=== PATIENT | male | born 1985 | race Caucasian/White ===

== ENCOUNTER 2019-05-18 09:37 | Outpatient (CLI) | payer BC, SELFPAY ==
--- NOTE | 2019-05-18 10:03 | ECHO_ITS ---
Patient Info Name: Thompson Vidal Age: 33 years : 1985 Gender: Male Ht: 70 in Wt: 155 lbs BSA: 1.86 m2 HR: 53 bpm BP: 122 / 69 mmHg Heart Rhythm: Sinus Rhythm Technical Quality: Good Exam Date: 05/18/2019 10:11 AM Exam Location: [facility] Patient Status: Outpatient Admit Date: 05/18/2019 Staff Ordering Physician: Valentin Hagan MD Financial Reporting Director: Yelena Garcia RDCS Attending Provider: Valentin Hagan MD Referring Physician: Bentley SAINI; Exam Type: CA echo doppler color flow Study Info Indications - MURMUR Complete two-dimensional, color flow and Doppler transthoracic echocardiogram is performed. Summary 1. Trivial amounts of both tricuspid and pulmonic valve insufficiency. 2. Otherwise unremarkable echocardiogram. Left Ventricle Left ventricular chamber dimension is normal. Left ventricular systolic function is normal, estimated at 60-65%. The left ventricular diastolic function is normal. Right Ventricle Right ventricular chamber dimension is normal. Left Atria Left atrial chamber dimension is normal. Right Atria Right atrial chamber dimension is normal. Aortic Valve The aortic valve is normal. Pulmonic Valve The pulmonic valve is normal. There is trace pulmonic regurgitation. Mitral Valve The mitral valve has normal leaflets. Tricuspid Valve The tricuspid valve leaflets are normal. There is trace tricuspid valve regurgitation. Pericardium/Pleural The pericardium appears normal. Aorta The aortic root size at the sinus of Valsalva is normal. Left Ventricular Outflow Tract Name Value Normal LVOT 2D LVOT Diameter 2.0 cm LVOT Doppler LVOT Peak Gradient 6 mmHg LVOT Mean Gradient 4 mmHg LVOT VTI 26 cm LVOT VTI/AV VTI Ratio 0.9 LVOT Stroke Volume 85 ml LVOT CO 17.8 l/min LVOT CI 9.5 l/min/m2 Pulmonic Valve Name Value Normal PV Doppler PV Peak Gradient 5 mmHg PV Regurgitation Doppler WI Peak End Diastolic Velocity 77 cm/s Mitral Valve Name Value Normal MV Doppler MV Decel Coles 437 cm/s2 MV PHT 75 ms MV Area (PHT) 3.0 cm2 4.0-5.0 MV Diastolic Function
== END 2019-05-18 09:38 | disposition home or self-care (01) ==
PROVIDERS: PCP Family Medicine; Visit Provider Surgery
DX: R01.1 Cardiac murmur, unspecified (principal)
CPT/HCPCS: 93306

== ENCOUNTER 2019-07-17 06:02 | Outpatient (CLI) | payer BC, SELFPAY ==
[2019-07-17 17:06] LABS: SARS-CoV-2 RNA PCR Negative
== END 2019-07-17 06:03 | disposition home or self-care (01) ==
LOC: ANHCOVIDDT 06:02
PROVIDERS: PCP Family Medicine; Visit Provider Surgery
DX: Z01.818 Encounter for other preprocedural examination (principal); Z11.59 Encounter for screening for other viral diseases
CPT/HCPCS: 87635; C9803; U0003

== ENCOUNTER 2019-07-17 08:11 | Outpatient (CLI) | payer BC, SELFPAY ==
--- NOTE | 2019-07-17 08:15 | ECG_ITS ---
Measurements Intervals [place] Rate: 45 P: 64 DE: 184 QRS: 38 QRSD: 92 T: 54 QT: 401 QTc: 348 Interpretive Statements SINUS BRADYCARDIA DELAYED PRECORDIAL R/S TRANSITION PEAKED T WAVES- CONSIDER HYPERKALEMIA OR ISCHEMIA BASELINE ARTIFACT- I, II, III, AVR, AVL, AVF ABNORMAL ECG Electronically Signed On 07-17-2019 8:36:03 CDT by Aramis Anguiano D.O.
[2019-07-17 08:46] LABS: Hematocrit 50.6 % (42.0-52.0); Hemoglobin 17.1 g/dL (14.0-18.0)
== END 2019-07-17 08:12 | disposition home or self-care (01) ==
LOC: ANHSURGERY 08:15
PROVIDERS: Anesthesiology; PCP Family Medicine; Visit Provider Surgery
DX: Z01.812 Encounter for preprocedural laboratory examination (principal); K40.20 Bilateral inguinal hernia, without obstruction or gangrene, not specified as recurrent; R94.31 Abnormal electrocardiogram [ECG] [EKG]
CPT/HCPCS: 36415; 85014; 85018; 86850; 86900; 86901; 93005

== ENCOUNTER 2019-07-20 01:48 | Day surgery (SDC) | payer BC, SELFPAY ==
[2019-02-13 14:15] VITALS: BMI 22.1
[2019-05-18 11:50] VITALS: BMI 22.1
[2019-07-15 11:54] VITALS: BMI 22.1
[2019-07-20] VITALS (10 sets, daily range): BP systolic 113–132; BP diastolic 67–85; PULSE 42–68; RESP 10–14; TEMP 36–36.3; O2SAT 99–100; BMI 25.0
--- NOTE | 2019-07-20 09:17 | PM.HPGS ---
History of Present Illness History of Present Illness Consent: Risks, benefits, and alternatives of a bilateral laparoscopic inguinal hernia repair have been discussed and questions answered. Patient agrees to proceed with procedure. Chief complaint: Bilateral Inguinal Hernia Narrative: Thompson Vidal is a 34 year old male that presented to the office at the request of Dr House for an evaluation of an inguinal hernia. Patient reports he first noticed a bulge in his left groin about 7 months ago while he was showering. Patient reports that he notices the bulge more with physical active and the only thing that really helps is when he manually reduces the bulge. Patient reports that he recently has trained for and then climbed [employer] so he was being very active. He has now switched to primarily bicycle exercise due to lifting concerns with the bulge. Patient reports there is mild discomfort especially with exertion. Patient denies any changes to the bulge. Patient denies any bulge on the right side or at his umbilicus. Patient denies any pervious history of any other hernias. Patient denies any family history of hernias. Review of Systems Constitutional: Constitutional: Reports no additional constitutional complaints and Denies frequent falls Eyes: Eyes: Reports as per HPI ENT: Reports Normal hearing present, Denies dizziness and Reports other (Mucous membranes moist.) Cardiovascular: Cardiovascular: Denies chest pain, Denies palpitations, Denies dyspnea and Denies dyspnea on exertion Respiratory: Respiratory: Denies hemoptysis, Denies dyspnea, Denies dyspnea on exertion and Denies wheezing Gastrointestinal: Gastrointestinal: Reports no additional gastrointestinal complaints and Reports other (bulging in the left inguinal area wiht exertion) Genitourinary: Genitourinary: Denies hematuria, Denies nocturia and Denies urinary frequency Musculoskeletal: Musculoskeletal: Denies deformity and Reports other ( no clubbing,cyanosis, or edema) Integumentary/Breasts: Skin/Breast: Denies new lesions, Denies rash and Denies unusual bruising Neurologic: Reports Normal hearing present, Denies dizziness, Denies frequent falls, Denies memory loss and Denies seizure-like activity Psychiatric: Psychiatric: Denies memory loss and Reports other ( normal mood and mental status) Endocrine: Endocrine: Denies cold intolerance and Denies palpitations Hematologic/Lymphatic: Hematologic/Lymphatic: Denies easy bleeding and Denies easy bruising Allergic/Immunologic: Allergic/Immunologic: Denies wheezing and Reports other ( no lymphadenopathy) PMFSH Family History Family History Grandparent Lung cancer Maternal Grandpa Grandparent Melanoma Maternal Grandmother Grandparent Heart attack Paternal Grandfather Social History Social History Smoking status: Never smoker Alcohol intake: current Substance use: never Substance use type: does not use Additional occupation/education comments: [employer] Gender identity (if verbalized by the patient): Male Spiritual care concerns: No Agree to blood products: Yes Meds Home Medications and Allergies Home Medications Medication Instructions Recorded Confirmed Type No Home Medications 01/13/19 07/20/19 History Allergies Allergy/AdvReac Type Severity Reaction Status Date / Time No Known Allergies Allergy Verified 07/20/19 10:36 Exam Const: General: cooperative, no acute distress, well developed, alert and awake Nutritional Appearance: well nourished Orientation/consciousness: oriented to person, oriented to place, oriented to time and patient oriented x3 HENMT: Head: normal to inspection, normocephalic and atraumatic Ears: hearing grossly normal bilaterally and external ears normal General nose exam: Normal external nose present and No
[2019-07-20] MEDS: LACTATED RINGERS 1,000 ML 30 ML IV CONT ×2 (10:45→13:56)
--- NOTE | 2019-07-20 11:03 | WPDANESEPPF ---
Anes - Initial Pre Proc Eval Procedure: Operation Date: 07/20/19 12:00 Proposed Procedures p Laparoscopic Total Extraperitoneal Bilateral Inguinal Hernia Repair With Mesh, Possible Open - Valentin Hagan MD Date/Time: 07/20/19 11:03 Surgeon: Valentin Hagan MD Pre Op Diagnosis: Bilateral Inguinal Hernia Patient Data Age: 34 Gender: M Height: 5 ft 9 in Weight: 77 kg Last Vital Signs Temp 36.0 C L 07/20/19 10:28 Pulse 51 L 07/20/19 10:28 Resp 14 07/20/19 10:28 BP 129/73 07/20/19 10:28 Pulse Ox 100 07/20/19 10:28 Allergies Allergy/AdvReac Type Severity Reaction Status Date / Time No Known Allergies Allergy Verified 07/20/19 10:36 Home Medications Medication Instructions Recorded Confirmed Type No Home Medications 01/13/19 07/20/19 History Patient hx anesthesia problems: none Family hx anesthesia problems: none [facility] Family History Family History Grandparent Lung cancer Maternal Grandpa Grandparent Melanoma Maternal Grandmother Grandparent Heart attack Paternal Grandfather Social History Social History Smoking status: Never smoker Alcohol intake: current Substance use: never Substance use type: does not use Additional occupation/education comments: [employer] Gender identity (if verbalized by the patient): Male Spiritual care concerns: No Agree to blood products: Yes Anes - Eval Final PreProcedure Day of Procedure 07/20/19 11:03 Patient weight: normal Heart: regular rate and rhythm Lungs: clear to auscultation Airway: Mallampati scale class 1 Neurological: alert and oriented Last oral intake: >/= 8 hours ASA classification: I Emergent: no Anesthetic plan: proceed Anesthesia type and monitoring: general ETT and standard monitoring Informed Consent: The patient's anesthetic plan and its attendant risks and benefits were discussed with the patient/family/POA. Questions were solicited and answers provided to the satisfaction of the patient/family/POA.
[2019-07-20] MEDS: ceFAZolin 2 GM/D5W 50 ML 2 GM/50 ML BAG IVPB (11:42)
[2019-07-20] MEDS: BUPIVACAINE/EPINEPHRINE 0.5% 30 ML VIAL INFILTRATE (11:42)
--- NOTE | 2019-07-20 13:42 | SUR.OPER ---
EBL:5cc
--- NOTE | 2019-07-20 13:51 | PM.PROC ---
Procedure Note - Detailed Date of procedure: 07/20/19 Pre-op diagnosis: Bilateral Inguinal Hernia Post-op diagnosis: other (Bilateral direct inguinal hernias left greater than right) Procedure performed: Totally extraperitoneal bilateral inguinal hernia repair with mesh Description of procedure: Patient was seen in the preoperative area and questions answered. History and physical was updated. After appropriate marking of the operative site prior to surgery, the patient was taken to the operating room. After induction of adequate general endotracheal anesthesia by [facility] staff, the patient was carefully prepped and draped in a sterile fashion. A timeout was performed confirming the procedure and site of surgery on the bilateral inguinal hernia repair with mesh. Following this, local anesthetic was infiltrated into the umbilical area and a vertical incision was made just below the umbilicus. I carefully dissected down to the the anterior rectus sheath on the right and then made a 1 cm vertical slit in the fascia just off the midline. The rectus muscle was retracted to right and then just in front of the posterior rectus sheath, a dissecting balloon was passed onto the pubic bone. This was insufflated with 40 pumps, while watching with the 0 degree laparoscope. It appeared that I was in the proper plane. Following this, the dissecting balloon was removed and replaced by an O-frame conforming balloon. Following this, the 0 degree laparoscope was used to carefully place two 5mm Apple trocars in the enfra-umbilical midline. One suprapubic and other one long-term between the umbilicus and the pubic bone. Tedious dissection then occurred in the preperitoneal space exposing the Anatoly's ligament first on the left, the cord structures, the muscular tissue anteriorly, and the retroperitoneum. This was then able to be dissected back and we could visualize the posterior peritoneum. During this dissection we identified a pseudo sac on the left and tissues were dissected out of the direct hernia and it appeared that the pseudo sac would pull in and quit be able to be tacked to the anterior abdominal wall. I then dissected up to the level of the umbilicus and it was ready for mesh placement. At this point I moved to the patient's left side and did the same dissection on the right. The pseudo sac seen upon initial dissection through the balloon was identified and freed away from the surrounding tissues and I identified the inferior epigastric vessels and the anterior abdominal wall laterally. We pulled the superior edge of the peritoneum back toward the umbilicus far enough such that it appeared that the large 3DMax mesh would fit nicely. I then grasped the right-sided pseudo sac in the direct hernia space and pulled it back in and placed 2 tacks through it into the anterior abdominal wall musculature toward the midline. This nicely held the pseudo sac reduced back into the preperitoneal space. I then repeated the same maneuver on the left. After carefully confirming all sites and that the mesh would cover the direct space, I carefully 1st rolled the left large 3DMax mesh and slid this through the 12 mm trocar at the umbilical level down into the preperitoneal space. This unfurled nicely and sat nicely, after a little further dissection against the left groin structures. It nicely covered all spaces and it went back nicely into the preperitoneal space along the anterior-superior iliac spine. I then placed 1 tack into Anatoly's ligament and to into the anterior abdominal wall on either side of the epigastric vessels. We then carefully of visualized the entire left side of the pelvis which showed that the mesh will cover the preperitoneal groin well, and had come down to the posterior border of the peritoneum. I then moved to the patient's left side and performed the same procedure on the right rolling the mesh and placing it into position. Again 2 tacks anteriorly on either
[2019-07-20] MEDS: ONDANSETRON HCL ODT 4 MG TABLET PO (16:17)
== END 2019-07-20 16:36 | disposition home or self-care (01) ==
PROVIDERS: PCP Family Medicine; Visit Provider Surgery
PROC: (CPT 49650; principal; 2019-07-20 12:00)
DX: K40.20 Bilateral inguinal hernia, without obstruction or gangrene, not specified as recurrent (principal)
CPT/HCPCS: 49505; A9270; C1727; C1781; J0131; J0690; J1170; J2250; J2405; J2704; J2710; J3010; J7030; J7120

== ENCOUNTER 2020-01-15 15:15 | Outpatient (CLI) | payer BC, SELFPAY ==
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
== END 2020-01-15 15:16 | disposition home or self-care (01) ==
LOC: ANHIMG 15:18
PROVIDERS: PCP Family Medicine; Visit Provider Family Medicine
DX: M79.645 Pain in left finger(s) (principal); R07.81 Pleurodynia
CPT/HCPCS: 71101; 73120

== ENCOUNTER 2020-01-21 12:07 | Outpatient (CLI) | payer BC, SELFPAY ==
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
== END 2020-01-21 12:08 | disposition home or self-care (01) ==
PROVIDERS: PCP Family Medicine; Visit Provider Family Medicine
DX: M79.672 Pain in left foot (principal)
CPT/HCPCS: 73630